=== PATIENT | male | born 1965 | race Caucasian/White ===

== ENCOUNTER 2023-09-21 16:35 | Inpatient (IN) ==
[2023-09-21 17:56] LABS: ABS Basophils 0.1 10^3/uL (0.0-0.1); ABS Eosinophils 0.1 10^3/uL (0.0-0.5); ABS Lymphocytes 1.7 10^3/uL (1.0-4.8); ABS Monocytes 0.4 10^3/uL (0.0-1.1); ABS Neutrophils 4.8 10^3/uL (1.5-7.6); ABS Nucleated RBC 0.01 10^3/ul; Eosinophil % 0.8 %; Hemoglobin 14.8 g/dL (13.2-16.3); Lymphocyte % 24.6 %; Mean Corpuscular Hemoglobin 31.9 pg (27-33); Mean Corpuscular Hgb Conc 35.2 g/dL (31-36); Mean Corpuscular Volume 90.7 fL (80-97); Mean Platelet Volume 8.7 fL (7.5-11.2); Nucleated Red Blood Cells % 0.2 %/100WBC (0.0-0.8); Platelet Count 222 10^3/uL (150-450); Red Blood Count 4.63 10^6/uL (4.06-5.63); Red Cell Distribution Width 13.8 % (12-17); White Blood Count 7.1 10^3/uL (3.6-10.2)
[2023-09-21] MEDS ORDERED: Nicotine PATCH 14 MG/24 HR PATCH TRANSDERM ONE (18:05)
[2023-09-21 18:23] LABS: ALT 11 U/L (7-52); AST 13 U/L (13-39); Albumin 4.7 g/dL (3.2-5.2); Albumin/Globulin Ratio 1.6 (1-3); Alkaline Phosphatase 96 U/L (35-149); Anion Gap 11 mmol/L (2-16); Blood Urea Nitrogen 15 mg/dL (6-24); CO2 Carbon Dioxide 25 mmol/L (22-32); Chloride 103 mmol/L (101-111); Creatinine, Serum 1.16 mg/dL (0.67-1.17); Globulin 2.9 g/dL (2-4); Glucose 251 mg/dL (70-100); Potassium 3.4 mmol/L (3.5-5.0); Sodium 139 mmol/L (135-145); Total Bilirubin 0.6 mg/dL (0.2-1.0); Total Protein 7.6 g/dL (6.4-8.9); eGFR CKD-EPI 73.5 (>60)
[2023-09-21 18:37] LABS: Acetaminophen < 15 mcg/mL; Alcohol, S < 13 mg/dL (<13); Salicylate < 2.50 mg/dL (<30)
[2023-09-21 18:53] LABS: TSH Ultra Thyroid Stim Horm 1.76 mcIU/mL (0.34-5.60)
[2023-09-21 19:35] LABS: Urine Appearance Cloudy; Urine Bilirubin Negative (Negative); Urine Blood Negative (Negative); Urine Color Amber; Urine Glucose 1+(50 mg/dL) (Negative); Urine Ketones Trace (Negative); Urine Nitrite Negative (Negative); Urine Protein 1+(30 mg/dL) (Negative); Urine Specific Gravity 1.021 (1.002-1.030); Urine Urobilinogen Negative (Negative)
[2023-09-21 19:52] LABS: Urine Bacteria Absent (Absent); Urine Red Blood Cell Absent (Absent); Urine White Blood Cell Absent (Absent)
[2023-09-21 19:55] LABS: Urine Benzodiazepine Screen None Detected (None Detect); Urine Cannabinoids Screen None Detected (None Detect); Urine Opiates Screen None Detected (None Detect)
[2023-09-21] MEDS ORDERED: Nicotine GUM 2MG FRUIT FLAVOR PO PRN (22:00)
[2023-09-22 08:50] LABS: HDL Cholesterol 39.8 mg/dL
[2023-09-22 11:17] LABS: ABS Eosinophils 0.1 10^3/uL (0.0-0.5); ABS Lymphocytes 1.7 10^3/uL (1.0-4.8); ABS Monocytes 0.5 10^3/uL (0.0-1.1); ABS Neutrophils 6.2 10^3/uL (1.5-7.6); Eosinophil % 0.8 %; Hematocrit 42.4 % (38-53); Hemoglobin 14.5 g/dL (13.2-16.3); Lymphocyte % 20.4 %; Mean Corpuscular Hemoglobin 31.4 pg (27-33); Mean Corpuscular Hgb Conc 34.3 g/dL (31-36); Mean Corpuscular Volume 91.5 fL (80-97); Mean Platelet Volume 9.4 fL (7.5-11.2); Platelet Count 223 10^3/uL (150-450); Red Blood Count 4.63 10^6/uL (4.06-5.63); White Blood Count 8.6 10^3/uL (3.6-10.2)
[2023-09-22] MEDS: Vitamin THERAPEUTIC TAB PO SCH (11:22)
[2023-09-22] MEDS: Nicotine PATCH 21 MG/24 HR PATCH TRANSDERM SCH (11:24)
[2023-09-23] MEDS: Vitamin THERAPEUTIC TAB PO SCH (08:44)
[2023-09-23] MEDS: Nicotine PATCH 21 MG/24 HR PATCH TRANSDERM SCH (10:06)
[2023-09-23] MEDS: Al Hydrox/Mg Hydrox/Simet LIQ 30 ML UDC PO PRN ×2 (18:43→22:58)
[2023-09-24] MEDS: Nicotine PATCH 21 MG/24 HR PATCH TRANSDERM SCH (08:20)
[2023-09-24] MEDS: Vitamin THERAPEUTIC TAB PO SCH (08:22)
[2023-09-24] MEDS: Senna TAB 8.6 mg TAB PO PRN (17:43)
[2023-09-25] MEDS: Nicotine PATCH 21 MG/24 HR PATCH TRANSDERM SCH ×2 (09:37→09:43)
[2023-09-25] MEDS: Vitamin THERAPEUTIC TAB PO SCH (09:39)
[2023-09-25] MEDS: Al Hydrox/Mg Hydrox/Simet LIQ 30 ML UDC PO PRN ×2 (14:46→21:53)
[2023-09-25] MEDS: Senna TAB 8.6 mg TAB PO PRN (17:23)
[2023-09-26] MEDS: Vitamin THERAPEUTIC TAB PO SCH (09:18)
[2023-09-26] MEDS: Nicotine PATCH 21 MG/24 HR PATCH TRANSDERM SCH (09:18)
[2023-09-26] MEDS: Al Hydrox/Mg Hydrox/Simet LIQ 30 ML UDC PO PRN ×2 (12:22→17:14)
[2023-09-27] MEDS: Al Hydrox/Mg Hydrox/Simet LIQ 30 ML UDC PO PRN ×4 (02:08→22:40)
[2023-09-27] MEDS: Nicotine PATCH 21 MG/24 HR PATCH TRANSDERM SCH (08:21)
[2023-09-27] MEDS: Vitamin THERAPEUTIC TAB PO SCH (08:21)
[2023-09-28] MEDS: Nicotine PATCH 21 MG/24 HR PATCH TRANSDERM SCH (08:54)
[2023-09-28] MEDS: Vitamin THERAPEUTIC TAB PO SCH (08:57)
[2023-09-28 09:10] VITALS: BP 120/65
[2023-09-28 09:18] LABS: ABS Eosinophils 0.1 10^3/uL (0.0-0.5); ABS Lymphocytes 1.7 10^3/uL (1.0-4.8); ABS Monocytes 0.5 10^3/uL (0.0-1.1); ABS Neutrophils 5.9 10^3/uL (1.5-7.6); ABS Nucleated RBC 0.01 10^3/ul; Eosinophil % 1.1 %; Hematocrit 42.2 % (38-53); Hemoglobin 14.2 g/dL (13.2-16.3); Lymphocyte % 20.3 %; Mean Corpuscular Hemoglobin 31.2 pg (27-33); Mean Corpuscular Hgb Conc 33.6 g/dL (31-36); Mean Corpuscular Volume 92.8 fL (80-97); Mean Platelet Volume 8.7 fL (7.5-11.2); Nucleated Red Blood Cells % 0.1 %/100WBC (0.0-0.8); Platelet Count 209 10^3/uL (150-450); Red Blood Count 4.54 10^6/uL (4.06-5.63); Red Cell Distribution Width 13.9 % (12-17); White Blood Count 8.2 10^3/uL (3.6-10.2)
[2023-09-28 17:08] LABS: Clozapine 57 ng/mL (350-600); Clozapine & Norclozapine Level 111 ng/mL; Norclozapine 54 ng/mL
== END 2023-09-28 13:52 | disposition home or self-care (01) | DRG 885 ==
LOC: ED 16:35 → BSU 21:43 → EDHOLD 21:43 → BSU 22:17
PROVIDERS: ADMIT Psychiatry & Neurology Psychiatry; ATTEND Psychiatry & Neurology Psychiatry